=== PATIENT | female | born 1980 | race Two or more races ===

== ENCOUNTER 2018-07-03 04:24 | Inpatient (IN) | payer MEDICAID ==
[~2018-07-03] VITALS: Ht 160 cm; Wt 72.6 kg
[2018-07-03 05:34] LABS: UA SPECIFIC GRAVITY <=1.005 (1.005-1.035); microscopic required? YES; urine erythrocyte 1+ (NEGATIVE)
[2018-07-03 05:36] LABS: PLATELET COUNT 148 x10^3mcL (130-400)
[2018-07-03 05:38] LABS: RED CELL DISTRIBUTION WIDTH 16.8 % (11.5-14.5)
[2018-07-03 05:57] LABS: BAND NEUTROPHIL 12 % (0-10); MONOCYTE 7 % (0-7); SEGMENTED NEUTROPHILS 76 % (37-75)
[2018-07-03 06:00] LABS: PLATELET MORPHOLOGY PLATELETS DECREASED; rbc morphology (normal/abnorm) ABNORMAL (NORMAL)
[2018-07-03 07:23] LABS: SODIUM SERUM 134 mmol/L (136-145)
[2018-07-03 07:24] LABS: ALBUMIN 2.2 g/dL (3.4-5.0); BILIRUBIN TOTAL 0.76 mg/dL (0.20-1.00); CALCIUM 8.2 mg/dL (8.5-10.1); CARBON DIOXIDE 20.9 mmol/L (21-32); CHLORIDE SERUM 101 mmol/L (98-107); CREATININE SERUM 0.5 mg/dL (0.6-1.0); GFR1 > 60 mL/min; GLUCOSE SERUM 130 mg/dL (74-106); TOTAL PROTEIN, SERUM 6.4 g/dL (6.4-8.2)
[2018-07-03 07:25] LABS: ALKALINE PHOSPHATASE 131 U/L (46-116); ALT/SGPT 17 U/L (14-59); AST/SGOT 21 U/L (15-37); FREE T4 2.27 ng/dL (0.76-1.46); LIPASE 54 IU/L (73-393); POTASSIUM SERUM 2.8 mmol/L (3.5-5.1)
[2018-07-03 08:50] VITALS: BP 113/75
[2018-07-03 11:10] VITALS: BP 113/75
[2018-07-03 13:11] VITALS: BP 110/63
[2018-07-03 14:23] VITALS: BP 110/63
[2018-07-03 18:20] VITALS: BP 113/67
[2018-07-03 21:02] VITALS: BP 101/38
[2018-07-04 05:15] VITALS: BP 103/45
[2018-07-04 05:18] VITALS: BP 103/45
[2018-07-04 06:22] LABS: BASOPHIL % 0.8 % (0-2); PLATELET COUNT 147 x10^3mcL (130-400)
[2018-07-04 07:00] LABS: CHLORIDE SERUM 101 mmol/L (98-107); CREATININE SERUM 0.4 mg/dL (0.6-1.0); GFR1 > 60 mL/min; GLUCOSE SERUM 123 mg/dL (74-106); POTASSIUM SERUM 3.1 mmol/L (3.5-5.1); SODIUM SERUM 134 mmol/L (136-145)
[2018-07-04 07:13] LABS: RED CELL DISTRIBUTION WIDTH 16.7 % (11.5-14.5)
[2018-07-04 07:57] VITALS: BP 102/53
[2018-07-04 12:17] VITALS: BP 108/64
[2018-07-04 16:46] VITALS: BP 117/61
[2018-07-04 20:50] VITALS: BP 107/70
[2018-07-05 05:42] VITALS: BP 107/62
[2018-07-05 08:38] LABS: PLATELET COUNT 178 x10^3mcL (130-400)
[2018-07-05 08:50] LABS: CALCIUM 8.1 mg/dL (8.5-10.1); CARBON DIOXIDE 23.7 mmol/L (21-32); CHLORIDE SERUM 101 mmol/L (98-107); CREATININE SERUM 0.4 mg/dL (0.6-1.0); GFR1 > 60 mL/min; GLUCOSE SERUM 135 mg/dL (74-106); POTASSIUM SERUM 3.2 mmol/L (3.5-5.1); RED CELL DISTRIBUTION WIDTH 16.5 % (11.5-14.5); SODIUM SERUM 135 mmol/L (136-145)
[2018-07-05 09:40] VITALS: BP 118/68
[2018-07-05] MEDS ORDERED: PRENATAL VITAMI1 TA1 PO (10:13)
[2018-07-05] MEDS ORDERED: MAC100 PO (10:13)
[2018-07-05 12:10] LABS: BAND NEUTROPHIL 10 % (0-10); BASOPHIL 0 % (0-2); MONOCYTE 10 % (0-7); SEGMENTED NEUTROPHILS 73 % (37-75)
[2018-07-05 12:11] LABS: PLATELET MORPHOLOGY PLATELETS NORMAL; rbc morphology (normal/abnorm) ABNORMAL (NORMAL)
[2018-07-05 13:37] VITALS: Ht 160 cm; Wt 72.6 kg
[2018-07-05] MEDS ORDERED: CIPRO500 MG PO (13:49)
[2018-07-05 14:00] VITALS: BP 113/72
[2018-07-05 14:09] VITALS: BP 113/72
== END 2018-07-05 14:45 | disposition home or self-care (01) | DRG 566 ==
LOC: ED 04:24 → MU 07:25 → DU 07:25 → MU 07-05 09:00
PROVIDERS: Emergency Medicine; Internal Medicine; ADMIT Family Medicine
DX: O23.42 Unspecified infection of urinary tract in pregnancy, second trimester (principal); E44.0 Moderate protein-calorie malnutrition; Z3A.16 16 weeks gestation of pregnancy; O99.282 Endocrine, nutritional and metabolic diseases complicating pregnancy, second trimester; E87.1 Hypo-osmolality and hyponatremia; D72.829 Elevated white blood cell count, unspecified; E87.6 Hypokalemia
CPT/HCPCS: 83880; 84439; 85378; 87804; J0696; J1650; J2543; J7620